=== PATIENT | male | born 1970 | race African-American/Black ===

== ENCOUNTER 2024-04-12 21:46 | Emergency (ER) | payer SELFPAY ==
[~2024-04-12] VITALS: Ht 185.4 cm; Wt 101.2 kg
[2024-04-12 21:51] VITALS: O2SAT 99
[2024-04-12 23:33] LABS: CLARITY URINE CLEAR (CLEAR); COLOR URINE YELLOW (YELLOW); GLUCOSE URINE NEGATIVE (NEGATIVE); KETONES URINE NEGATIVE (NEGATIVE); LEUKOCYTE ESTERASE URINE NEGATIVE (NEGATIVE); NITRITE URINE NEGATIVE (NEGATIVE); OCCULT BLOOD URINE NEGATIVE (NEGATIVE); PROTEIN URINE 2+ (NEGATIVE); SPECIFIC GRAVITY URINE 1.019 (1.005-1.030)
[2024-04-13 00:12] LABS: BASOPHILS % 0.3 % (0.0-2.0); EOSINOPHILS % 2.3 % (0.0-5.0); HEMATOCRIT. 44.5 % (42.0-52.0); HEMOGLOBIN. 14.8 g/dL (14.0-18.0); LYMPHOCYTES % 18.4 % (20.0-50.0); MEAN CORPUSCULAR HEMOGLOBIN 30.3 pg (28.0-32.0); MEAN CORPUSCULAR HGB CONC 33.2 g/dL (31.0-37.0); MEAN CORPUSCULAR VOLUME 91.4 fL (80.0-94.0); MEAN PLATELET VOLUME 9.1 fl (7.4-10.4); MONOCYTES % 7.6 % (2.0-8.0); NEUTROPHILS % 71.4 % (40.0-76.0); PLATELET 182 x1000/uL (130-400); RED BLOOD CELL COUNT 4.87 mill/uL (4.7-6.1); RED CELL DISTRIBUTION WIDTH 12.7 % (11.6-14.6); WHITE BLOOD COUNT 12.5 x1000/uL (4.5-11.0)
[2024-04-13 00:17] LABS: CARBON DIOXIDE 29 mEq/L (21-32); CHLORIDE 102 mEq/L (98-107); POTASSIUM 4.6 mEq/L (3.5-5.1); SODIUM 138 mEq/L (136-145)
[2024-04-13 00:18] LABS: CALCIUM 9.7 mg/dL (8.7-10.4)
[2024-04-13 00:23] LABS: CREATININE 1.7 mg/dL (0.6-1.3); GLUCOSE 83 mg/dL (70-105); UREA NITROGEN BLOOD 18 mg/dL (9-23)
[2024-04-13 00:24] LABS: TROPONIN I HIGH SENSITIVITY 5 ng/L (3.0-53)
[2024-04-13 00:44] LABS: WBC URINE 0-2 /hpf (0-2)
[2024-04-13 00:45] LABS: BACTERIA URINE NONE SEEN; RBC URINE 0-2 /hpf (0-2); SQUAMOUS EPITHELIAL CELL URINE FEW /lpf (RARE/1+)
[2024-04-13] MEDS: LISINOPRIL 20MG TABLET PO ONE (00:45)
[2024-04-13] MEDS: KETOROLAC 15MG/ML VIAL IM ONE (01:45)
[2024-04-13 03:05] LABS: TROPONIN I HIGH SENSITIVITY 4 ng/L (3.0-53)
[2024-04-13] MEDS ORDERED: LISI20TA31 MT (03:11)
[2024-04-13 03:25] VITALS: BP 160/98; PULSE 88; RESP 18; TEMP 36.83628; O2SAT 99
== END 2024-04-13 03:46 | disposition home or self-care (01) ==
LOC: ER 21:46
DX: R07.89 Other chest pain (principal); I12.0 Hypertensive chronic kidney disease with stage 5 chronic kidney disease or end stage renal disease; N18.6 End stage renal disease; Z79.899 Other long term (current) drug therapy; Z98.890 Other specified postprocedural states
CPT/HCPCS: 99285; 71045; 80048; 81003; 83880; 85025; 84484 ×2; 36415 ×2; 93005; 96372; J1885

== ENCOUNTER 2024-10-02 00:23 | Emergency (ER) | payer SELFPAY ==
[~2024-10-02] VITALS: Ht 182.9 cm; Wt 106.0 kg
[~2024-10-02 00:23] MED LIST: LISI20TA31 MT
[2024-10-02 00:40] VITALS: O2SAT 96
[2024-10-02] MEDS ORDERED: TRAM50TA3 MT (01:27)
[2024-10-02] MEDS: TRAMADOL 50MG TABLET PO ONE (01:38)
[2024-10-02 01:39] VITALS: BP 128/87; PULSE 84; RESP 20; TEMP 36.7; O2SAT 96
== END 2024-10-02 01:41 | disposition home or self-care (01) ==
LOC: ER 00:23
DX: G89.29 Other chronic pain (principal); M25.561 Pain in right knee; I12.9 Hypertensive chronic kidney disease with stage 1 through stage 4 chronic kidney disease, or unspecified chronic kidney disease; N18.9 Chronic kidney disease, unspecified; Z79.899 Other long term (current) drug therapy
CPT/HCPCS: 99283

== ENCOUNTER 2024-10-11 14:11 | Emergency (ER) | payer SELFPAY ==
[~2024-10-11] VITALS: Ht 185.4 cm; Wt 107.0 kg
[~2024-10-11 14:11] MED LIST changes: +TRAM50TA3 MT
[2024-10-11 14:18] VITALS: O2SAT 99
[2024-10-11 14:38] VITALS: TEMP 37; O2SAT 99
[2024-10-11] MEDS ORDERED: TRAM50TA3 MT (16:07)
[2024-10-11 16:10] VITALS: BP 131/87; PULSE 82; RESP 18
[2024-10-11] MEDS: TRAMADOL 50MG TABLET PO ONE (16:10)
== END 2024-10-11 16:21 | disposition home or self-care (01) ==
LOC: ER 14:11
DX: G89.29 Other chronic pain (principal); M25.561 Pain in right knee; I12.9 Hypertensive chronic kidney disease with stage 1 through stage 4 chronic kidney disease, or unspecified chronic kidney disease; N18.9 Chronic kidney disease, unspecified; Z76.0 Encounter for issue of repeat prescription; Z79.899 Other long term (current) drug therapy
CPT/HCPCS: 99283

== ENCOUNTER 2024-10-31 13:31 | Emergency (ER) | payer SELFPAY ==
[~2024-10-31] VITALS: Ht 185.4 cm; Wt 106.5 kg
[2024-10-31 13:37] VITALS: O2SAT 100
[2024-10-31] MEDS ORDERED: TRAM50TA3 MT ×2 (15:00→15:33)
[2024-10-31 15:46] VITALS: BP 144/89; PULSE 74; RESP 16; TEMP 36.8; O2SAT 100
== END 2024-10-31 15:47 | disposition home or self-care (01) ==
LOC: ER 13:31
DX: G89.29 Other chronic pain (principal); M25.561 Pain in right knee; I12.9 Hypertensive chronic kidney disease with stage 1 through stage 4 chronic kidney disease, or unspecified chronic kidney disease; Z59.71 Insufficient health insurance coverage; Z76.0 Encounter for issue of repeat prescription; Z79.899 Other long term (current) drug therapy
CPT/HCPCS: 99281

== ENCOUNTER 2024-12-02 20:57 | Emergency (ER) | payer SELFPAY ==
[~2024-12-02] VITALS: Ht 185.4 cm; Wt 104.0 kg
[2024-12-02 21:00] VITALS: TEMP 37; O2SAT 99
[2024-12-02] MEDS ORDERED: LIDOCAINE 5% PATCH TOP SCH (21:30)
[2024-12-02] MEDS: KETOROLAC 15MG/ML VIAL IM ONE (21:45)
[2024-12-02] MEDS: LIDOCAINE 5% PATCH TOP SCH (21:45)
[2024-12-02] MEDS ORDERED: NAPR-1176 MT (21:56)
[2024-12-02] MEDS ORDERED: LIDO-53 TP (21:56)
[2024-12-02 22:41] VITALS: BP 158/93; PULSE 95; RESP 16; O2SAT 98
== END 2024-12-02 23:18 | disposition home or self-care (01) ==
LOC: ER 20:57
DX: M25.521 Pain in right elbow (principal); I10 Essential (primary) hypertension; Z79.899 Other long term (current) drug therapy
CPT/HCPCS: 73080; 96372; 99283; J1885; Z7610